=== PATIENT | female | born 2005 | race Caucasian/White ===

== ENCOUNTER → 2025-10-06 | Outpatient (CLI) | payer OTHER, SELFPAY ==
--- NOTE | 2025-10-06 09:14 | CT_ITS ---
PROCEDURE: SINUS/FACIAL BONE 10/06/2025 REASON FOR EXAM: SINUSITIS TECHNIQUE: Procedure Code: CTSI Modality: CT Procedure: SINUS/FACIAL BONE Coronal and Sagittal reconstruction series were provided. One or more dose reduction techniques were used (e.g., Automated exposure control, adjustment of the mA and/or kV according to patient size, use of iterative reconstruction technique). RADIATION DOSE SUMMARY: CTDlvol: 33.06 mGy DLP: 941.28 mGycm COMPARISON: None. FINDINGS: Frontal: Clear. The frontoethmoidal recesses are patent. Ethmoid: Minimal mucosal thickening in the right ethmoidal cells. Sphenoid: Unremarkable. The sphenoidal ethmoidal recesses are patent. Maxillary: Clear. The bilateral maxillary ostium are patent. Turbinates: Bilateral small monique bullosa in the middle terminates. Nasal Septum: A 7 mm spur protrudes into the left nasal septum. Mild left-sided bowing of the nasal septum. Mastoids/Middle Ears: Clear. CT/Sinus/Facial Bone IMPRESSION: Minimal mucosal thickening of the ethmoidal cells. The paranasal sinuses are otherwise unremarkable. Small bilateral monique bullosa. A 6 mm nasal septum spur protrudes into with the left nasal cavity. Reading Location: [id number]
== END | disposition home or self-care (01) ==
PROVIDERS: Referring Provider Otolaryngology Otolaryngology/Facial Plastic Surgery; Visit Provider Otolaryngology Otolaryngology/Facial Plastic Surgery
DX: J32.9 Chronic sinusitis, unspecified (principal)
CPT/HCPCS: 70486